=== PATIENT | female | born 2000 | race Caucasian/White ===

== ENCOUNTER → 2024-05-01 12:23 | Outpatient (REF) | payer OTHER, SELFPAY | LOC: RAD 12:23 | PROVIDERS: ATTENDING PHYSICIAN Psychiatry & Neurology Neurology | DX: M54.2 Cervicalgia (principal) | CPT/HCPCS: 72050 ==

== ENCOUNTER 2024-09-13 21:02 | Emergency (ER) | payer OTHER, SELFPAY ==
[2024-09-13 21:12] VITALS: BP 122/74
[2024-09-13 21:40] LABS: Hematocrit 31.7 % (37.0-47.0); Hemoglobin 9.9 g/dL (12.0-16.0); Mean Corp Hgb Conc. 31.2 g/dL (33.0-37.0); Mean Corpuscular Hgb 22.3 pg (27.0-31.0); Mean Corpuscular Volume 71.6 fL (81.0-99.0); Mean Platelet Volume 9.9 fL (7.4-10.4); Platelet Count 191 10^3/uL (130-400); Red Blood Cell Count 4.43 10^6/uL (4.20-5.40); Red Cell Dist. Width 15.9 % (11.5-14.5)
[2024-09-13 21:58] LABS: Blood Urea Nitrogen 8 mg/dl (7-17); Calcium 9.2 mg/dl (8.4-10.2); Carbon Dioxide 24 mmol/L (22-30); Chloride 104 mmol/L (98-107); Glucose 108 mg/dl (70-99); Potassium 4.7 mmol/L (3.5-5.1); Sodium 134 mmol/L (135-145); eGFR > 60.00
[2024-09-13 23:40] VITALS: BMI 23.5
[2024-09-13 23:41] VITALS: BP 116/70
[2024-09-13] MEDS: VIBRAMYCIN 100 MG PO (23:43)
[2024-09-13] MEDS: MOTRIN 600 MG PO (23:43)
[2024-09-13] MEDS: TYLENOL 1000 MG PO (23:43)
[2024-09-14 00:14] LABS: ALT (SGPT) 137 U/L (0-35); AST (SGOT) 132 U/L (14-36); Albumin 4.4 g/dl (3.5-5.0); Alkaline Phosphatase 104 U/L (38-126); Total Bilirubin 0.4 mg/dl (0.2-1.3); Total Protein 6.7 g/dl (6.3-8.2)
--- NOTE | 2024-09-14 00:14 | ED.GENMED ---
History of Present Illness
General
Chief Complaint: Fever
Source: patient
Exam Limitations: none
Time Seen by Provider: 09/13/24 23:08
Nursing documentation reviewed up to this point in time: agreed with
History of Present Illness
History of Present Illness:
This is a 23-year-old female with no significant past medical history who presents with 4-day history of fever, generalized aches/myalgias, intermittent headache and neck pain.
Evaluated at urgent care this morning and given ibuprofen as well as a muscle relaxer for neck pain. Admits to moderate improvement in neck pain with muscle relaxer.
She pulled a tick off of her right thoracic back region a few days ago and tonight she noticed a large red bull's-eye rash right posterior thoracic back at site of tick bite. No other accompanying bull's-eye rashes.
Other than ibuprofen this morning, she has not taken any other antipyretics.
She takes no medicines on a daily basis.
Last menstrual period 2 weeks ago, normal and on time. Denies risk of .
She denies dizziness nor lightheadedness, no chest pain nor palpitations, no abdominal pain, no nausea nor vomiting nor diarrhea. She denies sore throat, no congestion.
No history of similar episodes in the past.
Past History
Past History
ED Past Medical History: None and Psychiatric
ED Past Surgical History: None
Social History
Tobacco: Non-smoker
Alcohol: None
Drug: None
Personal: Single
Living: with family
Employment: Employed (Works at a [employer])
Family History
Family History: Other (Noncontributory)
Phy Exam
Physical Exam
Physical Exam:
GENERAL: 23-year-old female appears her stated age, awake and alert, pleasant, overall nontoxic in appearance.
EYE: pupils equal and reactive. anicteric
NECK: Supple, mild paracervical muscle spasm, full cervical range of motion, no meningismus, no significant adenopathy.
ENT: posterior pharynx is clear, oral mucosa is moist. TM clear b/l, nares patent.
CARDIAC: Regular rate and rhythm. no murmur. No rub.
LUNGS: Clear breath sounds bilaterally, no acute respiratory distress, no wheezes/rales/rhonchi
ABDOMEN: Soft, nondistended, without focal tenderness, no r/g, no cvat. normoactive BS.
NEUROLOGICAL: Alert and oriented x3, no focal neuro deficits. Gait is steady.
SKIN: Warm and dry, normal color, skin intact. There is a large erythematous bull's-eye rash right thoracic back. No palpable heat nor palpable tenderness.
MUSCULOSKELETAL: No C/C/E. peripheral pulses are full and equal b/l. No palpable tenderness.
PSYCH: Normal and appropriate interaction.
Sepsis
Sepsis Screening
Sepsis Assessment: Sepsis Ruled Out
Sepsis Screen
Sepsis Screen: Sepsis Ruled Out
Date: 09/14/24
Time: 03:42
Course
Orders/Labs/Results
Orders:
Orders
09/13/24 21:32
Complete Blood Count/No Diff Urgent
Comprehensive Metabolic Panel Urgent
Lyme Progressive Urgent
09/13/24 23:10
Add On- LAB Urgent
Tests Added?: LFT's
09/13/24 23:28
Acetaminophen [Tylenol] 1,000 mg PO NOW STA
Doxycycline [Vibramycin] 100 mg PO NOW STA
Ibuprofen [Motrin] 600 mg PO NOW STA
09/13/24 23:32
Electrocardiogram (*1) Urgent
Reason for Study: Other
Other Reason for Exam: acute Lyme's dz.
EKG- Treatment ONCE
Abnormal Lab Results
09/13/24
21:32
WBC 4.0 L 10^3/uL
(4.8-10.8)
Hgb 9.9 L g/dL
(12.0-16.0)
Hct 31.7 L %
(37.0-47.0)
MCV 71.6 L fL
(81.0-99.0)
MCH 22.3 L pg
(27.0-31.0)
MCHC 31.2 L g/dL
(33.0-37.0)
RDW 15.9 H %
(11.5-14.5)
Sodium 134 L mmol/L
(135-145)
Glucose 108 H mg/dl
(70-99)
AST 132 H U/L
(14-36)
ALT 137 H U/L
(0-35)
09/13/24 21:32
09/13/24 21:32
Vital Signs
Initial and Last Documented VS:
Initial Vital Signs
Temp Pulse Resp BP Pulse Ox
101.1 F H 120 16 122/74 98
09/13/24 21:12 09/13/24 21:12 09/13/24 21:12 09/13/24 21:12 09/13/24 21:12
Last Documented Vital Signs
Temp Pulse Resp BP Pulse Ox
99.4 F 90 16 116/70 99
09/13/24 23:42 09/13/24 23:41 09/13/24 23:41 09/13/24 23:41 09/14/24 00:34
MDM/Problems Addressed
Differential Diagnosis Includes:
History and exam consistent with acute Lyme's disease. Pathognomonic ECM.
Although complains of some neck pain, there is no meningismus, no facial nerve palsy, no focal neurodeficits thus nothing to suggest neurologic manifestation.
Will check EKG to assess for potential asymptomatic conduction delays�cardiac involvement.
Lyme titer is pending but will plan to initiate a 2-week course of doxycycline.
Will give Tylenol and ibuprofen for fever.
Labs thus far reveal mild leukopenia, mild anemia with normal platelet count. BMP is unremarkable. Will add LFTs
*Pulse Oximetry
SaO2: 99
Oxygen Mode of Delivery: Room air
Patient hypoxic: no
*EKG
Interpreted by ED Provider?: Yes
Comparison EKG: no comparison EKG present
Rate: normal
Rhythm: sinus
Webb: right axis deviation
Interval: normal interval
QRS Pattern: normal QRS
Ischemia: no ischemia
*Critical Care Note
Total Time (30-74mins, 75-104mins- exclusive of procedures): Not Applicable
Update Note
Update Note:
00:30
Fever dissipating and patient feeling improved, eager to be discharged to home.
LFTs mildly to moderately elevated but abdomen remains soft and nontender.
LFT elevation occasionally seen with acute Lyme's disease. Other consideration is coinfection with Anaplasma/Ehrlichia versus babesiosis. Doxycycline remains treatment of choice.
EKG shows rightward axis but no conduction abnormalities.
Will treat with 14-day course of doxycycline with recommendations for prompt follow-up with PCP for recheck.
Continue ibuprofen versus Tylenol for fever.
Return precautions discussed.
ED Attending Note
-
Portions of this chart may have been created with voice recognition software.� Occasional wrong word or��sound alike� substitutions may have occurred due to the inherent limitations of voice recognition software.
Discharge Plan
Departure
Patient Disposition: Home (Routine Discharge)
Date of Disposition: 09/14/24
Time of Disposition: 00:33
Patient with high blood pressure during this ER visit?: No
Condition: Good
Discharge Problem:
Acute Lyme disease with erythema migrans lesion 5 cm or greater in diameter
Instructions: Lyme disease, Doxycycline
Prescriptions:
New
doxycycline monohydrate 100 mg capsule
100 mg PO BID Qty: 28 1RF
ibuprofen 600 mg tablet
600 mg PO Q6H PRN (Reason: fever or pain) Qty: 30 0RF
No Action
acetaminophen 325 MG tablet
1 PO PRN (Reason: headache)
Referrals:
UNKNOWN - PT DOES,NOT KNOW [Unknown Provider]
Activity Restrictions/Additional Instructions:
Stay well-hydrated on a daily basis.
Continue Tylenol versus ibuprofen as needed for fever and a prescription for ibuprofen 600 mg has been provided.
You have been prescribed doxycycline 100 mg to take twice daily for the next 2 weeks for treatment of acute Lyme's disease.
I want you to follow-up with your primary care physician next week for recheck.
Interventions
Interventions:
*Risk Screen - Suicide Last Done: 09/13/24 21:12
*General Assessment Last Done: 09/13/24 23:40
*Neglect/Abuse Screening Last Done: 09/13/24 23:41
*ED- Fall Risk Assessment Last Done: 09/13/24 23:41
*ED COVID-19 Vaccine History Last Done: 09/13/24 23:41
*Nursing Disposition Last Done: 09/14/24 00:42
ED- Neurological Assessment Last Done: 09/13/24 23:50
ED-Skin Assessment Last Done: 09/13/24 23:50
Discharge Date and Time
Discharge Date/Time: 09/14/24 00:43
Print Language: KITTITIAN
[2024-09-16 13:43] LABS: Lyme Antibody Screen, EIA Presump. Positive (Negative)
== END 2024-09-14 00:43 | disposition home or self-care (01) ==
LOC: EMR 21:02
PROVIDERS: Student in an Organized Health Care Education/Training Program; EMERGENCY PHYSICIAN Emergency Medicine; FAMILY PHYSICIAN Family Medicine
DX: A69.20 Lyme disease, unspecified (principal)
CPT/HCPCS: 99283; 80053; 85027; 86617; 86618; 93005